=== PATIENT | female | born 1945 | race Caucasian/White ===

== ENCOUNTER 2016-11-08 19:41 | Emergency (ER) | payer BC ==
[2016-11-08 16:15] LABS: BASOPHILS 0.2 %; BASOPHILS ABSOLUTE 0.01 10/3/uL (0.0-0.16); EOSINOPHILS 2.8 %; EOSINOPHILS ABSOLUTE 0.17 10/3/uL (0.0-0.53); HEMATOCRIT 38.7 % (36.0-48.0); HEMOGLOBIN 12.7 g/dL (12.0-16.0); IMMATURE GRANULOCYTES 0.2 %; IMMATURE GRANULOCYTES ABSOLUTE 0.01 10/3/uL (0.0-0.11); LYMPHOCYTES 31.1 %; MANUAL DIFF NO %; MEAN CORPUS HGB CONC 32.8 g/dL (32.0-36.0); MEAN CORPUSCULAR HEMOGLOB 27.5 pg (26.0-34.0); MEAN CORPUSCULAR VOLUME 83.9 fL (80-100); MEAN PLATELET VOLUME 11.4 fL (9.2-13.0); MONOCYTES 6.7 %; MONOCYTES ABSOLUTE 0.41 10/3/uL (0.21-1.20); PLATELET COUNT 205 10/3/uL (150-400); RBC DISTRIBUTION WIDTH 13.8 % (12.0-16.0); RED CELL COUNT 4.61 10/6/uL (4.0-5.6); WHITE BLOOD CELLS 6.1 10/3/uL (4.5-10.5)
[2016-11-08 16:30] LABS: ALBUMIN 4.5 G/DL (3.5-5.0); CALCIUM, SERUM 9.2 MG/DL (8.5-10.4); CHLORIDE, SERUM 107 MMOL/L (96-112); CO2 (CARBON DIOXIDE) 29 MMOL/L (24-34); CREATININE 0.73 MG/DL (0.55-1.02); GFR AFRICAN AMERICAN 95 ML/MIN (>=60); GFR NON AFRICAN AMERICAN 82 ML/MIN (>=60); GLUCOSE, SERUM 114 MG/DL (60-99); SGOT(AST) 19 U/L (5-40); SGPT(ALT) 25 U/L (5-65); SODIUM, SERUM 141 MMOL/L (135-148); TOTAL BILIRUBIN 0.5 MG/DL (0-1.2)
[2016-11-08 16:31] LABS: A/G RATIO 1.2 (0.7-1.9); ALKALINE PHOSPHATASE 61 U/L (45-117); BUN (BLOOD UREA NITROGEN) 14 MG/DL (6-23); GLOBULIN 3.9 G/DL (2.5-4.1); POTASSIUM, SERUM 3.9 MMOL/L (3.5-5.3); TOTAL PROTEIN 8.4 G/DL (6.0-8.5)
== END 2016-11-08 20:12 | disposition home or self-care (01) ==
LOC: ER 19:41
PROVIDERS: Nurse Practitioner
DX: L03.115 Cellulitis of right lower limb (principal); R60.0 Localized edema; I10 Essential (primary) hypertension; E11.9 Type 2 diabetes mellitus without complications; Z88.5 Allergy status to narcotic agent; Z88.0 Allergy status to penicillin; Z88.1 Allergy status to other antibiotic agents; Z88.7 Allergy status to serum and vaccine; Z88.2 Allergy status to sulfonamides; Z88.8 Allergy status to other drugs, medicaments and biological substances
CPT/HCPCS: 80053; 83605; 85025; 87040; 93970; 96372; 99284; A9270-GY